=== PATIENT | male | born 1950 | race Caucasian/White ===

== ENCOUNTER 2020-08-19 15:07 | Emergency (ER) | payer OTHER, SELFPAY ==
[2020-08-19 15:20] VITALS: BP 144/92; PULSE 114; RESP 16; TEMP 36.4; O2SAT 96; BMI 33.4
--- NOTE | 2020-08-19 15:36 | HMH.EDUTC ---
[facility] [place] Disposition Clinical Impression: Nausea Disposition: Home, Self-Care Condition on Discharge: Good Instructions: DI for Fatigue, Nausea and Vomiting-Adult, DI for COVID-19 (Suspected or Confirmed ), Coronavirus Disease 2019 Additional Instructions: *Monitor Temp, Over the counter Motrin or Tylenol as directed/as needed Tylenol every 4 hours and Motrin every 6 hours (as long as your family doctor has told you that you can take it) for fever or pain. and straight to ER if unable to lower temp less than 101.0 after medication given *Warm salt water gargles may help to soothe the throat *Throat Lozenges *Warm fluids like tea with honey may help to soothe the throat *Sleep elevated *Humidifier/Vaporizer Drink extra fluids with and between meals. If you have difficulty drinking, try very small amounts of water or suck on ice chips. ? Avoid fruit juices, as these do not replace minerals and can actually increase diarrhea. ? Children and adults can use sports drinks to replenish electrolytes. Younger children and infants should use products formulated for children, like oral rehydration solutions. ? Eat food in small amounts and let your stomach recover. ? Get lots of rest. You may feel tired or weak. ? No greasy or fried foods for the next 24-48 hours BRAT diet Bananas Rice Apples and [place] ? Make sure to drink plenty of liquids ? Return if needed ? Straight to ER if any life threatening symptoms ? Zofran as prescribed ? Follow up with family doctor in the next 48-72 hours if no improvement or any worsening of symptoms Follow up IMMEDIATELY for new or worsening symptoms or no Noticeable improvement over the next 48-72 hours. 911 for difficulty breathing or swallowing You were tested for today for COVID19 your test result should be back in the next 24-48 hours, you may call to the [facility] to see if your test results are back in the next 48 hours [phone] [facility] hours are 9am-9pm You was given a handout with instructions for Self Quarantine and Self isolation for while you wait on test results and what to do if they are positive If you are positive the Health Dept will be contacting you also Prescriptions: Ondansetron [Zofran 4mg ODT] 4 mg PO TIDP PRN #6 tab PRN Reason: Nausea Transmission Status: Received by [id number] Referrals: Zena Spencer [Primary Care Provider] - As needed Time of Disposition: 16:14 Medical Decision Making - Geoff Inquiry Pt receiving controlled substance: No Geoff was queried for this patient: No Vital Signs: 08/19/20 15:20 08/19/20 16:03 08/19/20 16:20 Temperature 97.5 F L 97.5 F L Temperature Source Oral Pulse Rate 96 H Pulse Rate [Right Brachial] 114 H 96 H Respiratory Rate 16 16 Blood Pressure 144/92 H Blood Pressure [Right Arm] 144/92 H Blood Pressure Mean [Right Arm] 109 Blood Pressure Source [Right Arm] Automatic Cuff Blood Pressure Position [Right Arm] Sitting 02 Sat by Pulse Oximetry 96 Oxygen Delivery Method Room Air - Lab Data Lab Results 08/19/20 15:34: Influenza Type A Ag Negative, Influenza Type B Ag Negative Orders (Tests/Meds): ED MEDICATIONS Discontinued Medications Generic Name Dose Route Start Last Admin Trade Name Freq PRN Reason Stop Dose Admin Ondansetron HCl 4 mg 08/19/20 15:34 08/19/20 15:45 Ondansetron 4mg Odt SL 08/19/20 15:35 4 mg ONCE ONE Administration Medical Decision Narrative: After zofran patient state that nausea is much better and drank a bottle of water and not having any nausea at this time will monitor to make sure that patient has no vomiting Patient state that he is feeling better no longer having nausea and able to drink water with no vomiting [facility] [place] HPI - General Stated complaint: Weakness not able to eat Time Seen by Provider: 08/19/20 15:36 Mode of Arrival: Ambulatory Source of Information: Patient Limitations: No Limitations Description of Symptoms (Recalled from Hanna
[2020-08-19 15:54] LABS: UTC Influenza A Antigen Negative (Negative); UTC Influenza B Antigen Negative (Negative)
[2020-08-19 16:03] VITALS: PULSE 96
[2020-08-19 16:20] VITALS: BP 144/92; PULSE 96; RESP 16; TEMP 36.4; O2SAT 96
--- NOTE | 2020-08-20 10:08 | PC.NURSE ---
called pt to report he was positive for covid.
== END 2020-08-19 16:24 | disposition home or self-care (01) ==
PROVIDERS: Emergency Provider Nurse Practitioner; PCP Internal Medicine Addiction Medicine
DX: U07.1 COVID-19 (principal); R53.83 Other fatigue; R43.9 Unspecified disturbances of smell and taste
CPT/HCPCS: 87804; 99202; G0463; U0003

== ENCOUNTER 2020-09-09 11:30 | Emergency (ER) | payer OTHER, SELFPAY ==
[2020-09-09 11:35] VITALS: BP 158/92; PULSE 95; RESP 14; TEMP 36.8; O2SAT 96; BMI 33.4
--- NOTE | 2020-09-09 12:04 | HMH.EDUTC ---
[facility] [place] Clinical Impression: Exposure to COVID-19 virus Disposition: Home, Self-Care Condition on Discharge: Good Instructions: Preventing the Spread of Coronavirus Discharge Instructions Additional Instructions: Drink plenty of fluids. Take tylenol for pain or fever. Return if you begin to have difficulty breathing. Follow up with your regular doctor. GO TO THE ER FOR ANY WORSENING SYMPTOMS Referrals: Zena Spencer [Primary Care Provider] - Time of Disposition: 12:19 Medical Decision Making - Medical Records Medical records reviewed: No: I reviewed the patient's medical records. - Geoff Inquiry Pt receiving controlled substance: No Vital Signs: 09/09/20 11:35 09/09/20 12:23 Temperature 98.3 F 98.3 F Temperature Source Oral Pulse Rate 95 H Pulse Rate [Right Brachial] 95 H Respiratory Rate 14 14 Blood Pressure 158/92 H Blood Pressure [Right Arm] 158/92 H Blood Pressure Mean [Right Arm] 114 Blood Pressure Source [Right Arm] Automatic Cuff Blood Pressure Position [Right Arm] Sitting 02 Sat by Pulse Oximetry 96 Oxygen Delivery Method Room Air [facility] [place] HPI - General Stated complaint: cov test Time Seen by Provider: 09/09/20 12:04 Mode of Arrival: Ambulatory Source of Information: Patient Limitations: No Limitations Description of Symptoms (Recalled from Triage Doc. by RN): PATIENT NEEDING COVID TEST TO GO BACK TO PHYSICAL THERAPY HEENT Symptoms (Recalled from RN notes): No Resp Symptoms (Recalled from RN notes): No Skin Symptoms (Recalled from RN notes): No MS Symptoms (Recalled from RN notes): No Functional Status (Recalled from RN notes): WNL - History of Present Illness Provider Complaint: He needs a covid-19 test to be allowed to go to physical therapy. He denies any symptoms today, but he has felt bad for the past few days. - Related Data Previous Rx's Medication Instructions Recorded Cefdinir [Omnicef 300mg Capsule] 300 mg PO BID #20 cap 04/26/19 Fluticasone Propionate [Flonase 2 spr NS DAILY #1 bottle 04/26/19 50mcg nasal spray 16gm] Benzonatate [Tessalon Perle 100mg 100 mg PO TID PRN #15 cap 06/01/19 Cap*] Cefdinir [Omnicef 300mg Capsule] 300 mg PO BID #20 cap 06/01/19 Fluticasone Propionate [Flonase 1 - 2 spr NS DAILY #1 bottle 06/01/19 50mcg nasal spray 16gm] Ondansetron [Zofran 4mg ODT] 4 mg PO TIDP PRN #6 tab 08/19/20 Allergies Allergy/AdvReac Type Severity Reaction Status Date / Time No Known Allergies Allergy Verified 04/23/18 20:05 - Worker's Comp Is this a Worker's Comp case?: No [facility] History - Hepatitis A Screen Drug use history?: No High risk sexual behaviors?: No History of sexually transmitted infection?: No Currently employed?: No Childcare worker?: No Do you have indoor plumbing?: Yes Do you have electricity?: Yes Attestation statement:: This patient has been screened for Hepatitis A risk factors. I have reviewed the patient's past medical history: Yes Medical History: Reports:: Cancer - Social History Alcohol Intake: never Occupational Status: other ROS Obtained: Yes All systems reviewed & no additional complaints - Constitutional Constitutional: Reports system reviewed and no additional complaints, except as docu - Eyes Eyes: Reports system reviewed and no additional complaints, except as docu - ENT Ears, Nose, Mouth, and Throat: Reports system reviewed and no additional complaints, except as docu - Cardiovascular Cardiovascular: Reports system reviewed and no additional complaints, except as docu - Respiratory Respiratory: Reports system reviewed and no additional complaints, except as docu - Gastrointestinal Gastrointestingal: Reports: system reviewed and no additional complaints, except as docu Physical Exam - General General appearance: alert, in no apparent distress - Head Head exam: atraumatic, normocephalic, normal inspection - Eye Eye exam: Present: normal ap
[2020-09-09 12:23] VITALS: BP 158/92; PULSE 95; RESP 14; TEMP 36.8; O2SAT 96
--- NOTE | 2020-09-09 14:36 | PC.NURSE ---
PATIENT NOTIFIED OF POSITIVE COVID RESULTS
== END 2020-09-09 12:24 | disposition home or self-care (01) ==
PROVIDERS: Emergency Provider Nurse Practitioner Family; PCP Internal Medicine Addiction Medicine
DX: U07.1 COVID-19 (principal)
CPT/HCPCS: 99202; G0463; U0003

== ENCOUNTER → 2021-05-09 12:26 | Outpatient (CLI) | payer OTHER, SELFPAY | PROVIDERS: Visit Provider Internal Medicine Gastroenterology | DX: Z01.812 Encounter for preprocedural laboratory examination (principal); U07.1 COVID-19 | CPT/HCPCS: C9803; U0003; U0005 ==

== ENCOUNTER 2024-09-26 11:54 | Outpatient (CLI) | payer OTHER, SELFPAY ==
--- NOTE | 2024-09-26 11:57 | XR_ITS ---
FINAL REPORT CLINICAL HISTORY: pain in right ribs with movement COMPARISON: None FINDINGS: 3 views of the right ribs show no fractures. There is no pneumothorax or pleural fluid collection. Frontal chest radiograph is unremarkable. IMPRESSION: Negative right rib series. Reviewed, Interpreted and Dictated by Bonnie Carpio MD Transcribed by Margaret Cummings Authenticated and [facility]
== END 2024-09-26 23:59 | disposition home or self-care (01) ==
LOC: RAD 11:55
PROVIDERS: PCP Internal Medicine Addiction Medicine; Visit Provider Nurse Practitioner
DX: R07.81 Pleurodynia (principal)
CPT/HCPCS: 71101

== ENCOUNTER 2024-12-12 09:35 | Day surgery (SDC) | payer OTHER, SELFPAY ==
[2024-12-08 13:57] VITALS: BMI 34.4
[2024-12-12 11:17] VITALS: BP 161/72; PULSE 80; RESP 18; TEMP 36.6; O2SAT 99
[2024-12-12 11:35] VITALS: BP 138/80; PULSE 70; RESP 16; O2SAT 100
[2024-12-12] MEDS: MIDAZOLAM 2MG/2ML VIAL 1 MG IV (11:35)
[2024-12-12] MEDS: SODIUM CHLORIDE 0.9% 10ML FLUSH SYRINGE 10 ML IV (11:36)
[2024-12-12] MEDS: TIMOLOL 0.5% OPTH SOLN 5ML OP (11:37)
[2024-12-12] MEDS: TRI-MOXI 15MG/1MG/ML 1ML OPHTH VIAL 1 ML OP (11:37)
[2024-12-12] MEDS: LIDOCAINE 1% PF 2ML AMPULE 2 ML IJ (11:37)
[2024-12-12 11:40] VITALS: BP 147/98; PULSE 71; RESP 16; O2SAT 100
[2024-12-12 11:45] VITALS: BP 137/86; PULSE 72; RESP 16; O2SAT 100
[2024-12-12 11:47] VITALS: BP 138/83; PULSE 71; RESP 16; O2SAT 100
[2024-12-12 11:50] VITALS: BP 136/70; PULSE 77; RESP 17; TEMP 36.4; O2SAT 99
--- NOTE | 2024-12-12 12:07 | P.PCN_ITS ---
[facility] Procedure Note Date: 12/12/24 Time: 12:07 Procedure Note:: Preoperative Diagnosis: Cataract combined NS Cortical Complex [Right] Eye Postop diagnosis: same Operation: Microscopic phacoemulsification with intraocular lens implant [Right] Eye Specimen: None Blood Loss: None The patient was examined in the office with a complaint of poor vision in the [right] eye. The patient reports that this interferes with ADLs such as reading, watching TV and/or driving or the vision is like looking through a foggy haze and is very troubling. The patient was examined and found to have a visually significant cataract with best corrected vision of [20/400] by refraction and/or glare testing. Treatment options, risks and benefits were explained and the patient elected to have cataract surgery in an attempt to improve their vision. The patient had the eye anesthetized with topical tetracaine, the eye ways prepped and draped in the usual fashion for cataract surgery. A paracentesis and a temporal keratotomy were made. 0.2cc of 1% lidocaine PF was placed into the anterior chamber. And aqueous/viscoelastic exchange was done and a 360 degree capsulorexis was performed. Through hydrodissection and delineation with BSS on a cannula was done. The lens nucleus was phacoemulsified with CDE of [7.81]. Residual cortical material was removed using automated I&A The capsular bag was deepened with viscoelastic and a PCIOL was placed in the capsular bag with good centration and stability. A 30 gauge bent tip cannula on a 1ccTB syringe containing the trimoxie medication was placed under the inferior iris and anterior to the anterior lens capsule, rotated posteriorly and 0.2cc of trimoxie was injected into the vitreous. The plume of trimoxie was visualized during injection. Residual viscoelastic was removed using automated I&A. The keratotomy incision was hydrated with BSS on a cannula. The wound were checked and found to be water tight. IOP was checked digitally and adjusted as needed so as not to be too high. 1 drop of timolol 0.5%, ofloxacin, prednisolone acetate and ketorolac was instilled and eye shield taped over the eye. The patient was taken to recovery in good condition and will be seen postoperatively.
== END 2024-12-12 12:05 | disposition home or self-care (01) ==
PROVIDERS: PCP Internal Medicine Addiction Medicine; Visit Provider Ophthalmology
PROC: (CPT 66984; principal; 2024-12-12 12:00)
DX: E11.36 Type 2 diabetes mellitus with diabetic cataract (principal); H25.811 Combined forms of age-related cataract, right eye; H91.90 Unspecified hearing loss, unspecified ear; Z97.3 Presence of spectacles and contact lenses; Z79.84 Long term (current) use of oral hypoglycemic drugs; Z87.891 Personal history of nicotine dependence; Z79.82 Long term (current) use of aspirin; Z79.899 Other long term (current) drug therapy
CPT/HCPCS: 66984; J2250; V2632

== ENCOUNTER 2024-12-26 08:29 | Day surgery (SDC) | payer OTHER, SELFPAY ==
[2024-12-25 16:02] VITALS: BMI 34.4
[2024-12-26] MEDS: PHENYLEPHRINE 2.5% OPHTH SOLN 2ML OP ×3 (09:00→09:10)
[2024-12-26] MEDS: CYCLOPENTOLATE 2% OPHTH SOLN 2ML BOTTLE OP ×3 (09:00→09:10)
[2024-12-26] MEDS: TETRACAINE 0.5% OPTH SOL 15ML OP ×3 (09:00→09:10)
[2024-12-26 09:01] VITALS: BP 163/92; PULSE 74; RESP 18; TEMP 36.2; O2SAT 94
[2024-12-26 09:11] LABS: POC Glucose,Bedside 96 (70-110)
[2024-12-26 09:45] VITALS: BP 150/83; PULSE 73; RESP 18; TEMP 36.7; O2SAT 96
[2024-12-26] MEDS: MIDAZOLAM 2MG/2ML VIAL 1 MG IV (09:45)
[2024-12-26] MEDS: SODIUM CHLORIDE 0.9% 10ML FLUSH SYRINGE 10 ML IV (09:45)
[2024-12-26 09:50] VITALS: BP 146/75; PULSE 69; RESP 18; TEMP 36.7; O2SAT 93
[2024-12-26 09:55] VITALS: BP 143/81; PULSE 71; RESP 18; TEMP 36.7; O2SAT 95
[2024-12-26] MEDS: LIDOCAINE 1% PF 2ML VIAL 2 ML IJ (09:56)
[2024-12-26] MEDS: TIMOLOL 0.5% OPTH SOLN 5ML OP (09:56)
[2024-12-26] MEDS: TRI-MOXI 15MG/1MG/ML 1ML OPHTH VIAL 1 ML OP (09:57)
[2024-12-26 10:00] VITALS: BP 148/80; PULSE 68; RESP 18; TEMP 36.7; O2SAT 95
[2024-12-26 10:08] VITALS: BP 148/92; PULSE 68; RESP 19; TEMP 36.4; O2SAT 97
--- NOTE | 2024-12-26 11:04 | P.PCN_ITS ---
[facility] Procedure Note Date: 12/26/24 Time: 11:04 Procedure Note:: Preoperative Diagnosis: Cataract combined NS Cortical Complex [Left] Eye Postop diagnosis: same Operation: Microscopic phacoemulsification with intraocular lens implant [Left] Eye Specimen: None Blood Loss: None The patient was examined in the office with a complaint of poor vision in the [left] eye. The patient reports that this interferes with ADLs such as reading, watching TV and/or driving or the vision is like looking through a foggy haze and is very troubling. The patient was examined and found to have a visually significant cataract with best corrected vision of [20/400] by refraction and/or glare testing. Treatment options, risks and benefits were explained and the patient elected to have cataract surgery in an attempt to improve their vision. The patient had the eye anesthetized with topical tetracaine, the eye ways prepped and draped in the usual fashion for cataract surgery. A paracentesis and a temporal keratotomy were made. 0.2cc of 1% lidocaine PF was placed into the anterior chamber. And aqueous/viscoelastic exchange was done and a 360 degree capsulorexis was performed. Through hydrodissection and delineation with BSS on a cannula was done. The lens nucleus was phecoemulsified with CDE of [9.34]. Residual cortical material was removed using automated I&A The capsular bag was deepened with viscoelastica and a PCIOL was placed in the capsular bag with good centration and stability. Residual viscoelastic was removed using automated I&A. The keratotomy incision was hydrated with BSS on a cannula. The wound were checked and found to be water tight. IOP was checked digitally and adjusted as needed so as not to be too high. 1 drop of timolol 0.5%, ofloxacin, prednisolone acetate and ketorolac was instilled and eye shield taped over the eye. The patient was taken to recovery in good condition and will be seen postoperatively.
== END 2024-12-26 10:21 | disposition home or self-care (01) ==
PROVIDERS: PCP Internal Medicine Addiction Medicine; Visit Provider Ophthalmology
PROC: (CPT 66984; principal; 2024-12-26 11:00)
DX: E11.36 Type 2 diabetes mellitus with diabetic cataract (principal); H25.812 Combined forms of age-related cataract, left eye; H91.90 Unspecified hearing loss, unspecified ear; K21.9 Gastro-esophageal reflux disease without esophagitis; Z87.891 Personal history of nicotine dependence; Z79.82 Long term (current) use of aspirin; Z79.899 Other long term (current) drug therapy; Z79.84 Long term (current) use of oral hypoglycemic drugs; Z97.3 Presence of spectacles and contact lenses
CPT/HCPCS: 66984; 82962; J2250; V2632